=== PATIENT | male | born 1930 | race Caucasian/White ===

== ENCOUNTER 2019-01-17 10:45 | Emergency (ER) | payer MEDICARE, OTHER ==
[2019-01-17 11:09] VITALS: BP 158/61
[2019-01-17] MEDS ORDERED: traMADol 50 MG Tab PO ONE (11:15)
--- NOTE | 2019-01-17 13:04 | EDM.PDOC ---
ED HPI GENERAL MEDICAL PROBLEM - General Chief Complaint: General Stated Complaint: back pain post fall Time Seen by Provider: 01/17/19 10:48 Source of Information: Reports: Patient, Family History Limitations: Reports: Other (Patient is poor with history due to some baseline cognitive impairment) - History of Present Illness INITIAL COMMENTS - FREE TEXT/NARRATIVE: Patient brought in by his son for evaluation of low back pain complaint. Reportedly fell at home two days ago. No LOC per patient. Has history of falls /syncopal episodes which are being worked up by his primary care team. Recent adjustments to BP meds made per son. Son has concern that there could be a new compression fracture. Pain is more significant when patient lays flat. Also some discomfort at times when moving right shoulder. No other acute pain complaints or injuries reported. No focal weakness or neuro changes on ROS. No bowel/bladder changes. - Related Data Allergies Allergy/AdvReac Type Severity Reaction Status Date / Time Penicillins Allergy Skin Peels Verified 10/09/16 22:34 Home Meds: Home Meds Finasteride 5 mg PO DAILY@1200 04/09/16 [History] Sertraline HCl 50 mg PO QAM 04/09/16 [History] clonazePAM [Clonazepam] 0.5 mg PO BEDTIME 04/09/16 [History] Lisinopril 2.5 mg PO DAILY 10/09/16 [History] Nitroglycerin 0.4 mg SL Q5M PRN 10/09/16 [History] [place]-3 Fatty Acids [Maxepa] 2 tab PO DAILY 10/09/16 [History] atorvaSTATin [Lipitor] 40 mg PO BEDTIME 10/09/16 [History] Levothyroxine [Synthroid] 50 mcg PO BEDTIME #60 tablet 10/10/16 [Rx] Metoprolol Succinate [Toprol XL] 12.5 mg PO BID #60 tab.er 10/10/16 [Rx] Aspirin [Aspirin EC] 325 mg PO DAILY 01/17/19 [History] Brimonidine [Alphagan P 0.15% Ophth Soln] 1 drop OP BID 01/17/19 [History] Docusate Sodium [Colace] 100 mg PO DAILY 01/17/19 [History] Past Medical History HEENT History: Reports: Allergic Rhinitis, Cataract, Glaucoma, Hard of Hearing, Impaired Vision, Macular Degeneration Other HEENT History: Not wearing his glasses any longer with 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, macular degeneration and glaucoma, bilateral hearing aid therapy Cardiovascular History: Reports: Afib, Arrhythmia, CAD, Cardiomyopathy, Heart Failure, Heart Murmur, High Cholesterol, Hypertension, CT, PVD Other Cardiovascular History: Coronary artery disease with acute CT on 04/10/16 with stent placement as below, Mild mitral valve insufficiency and mild to moderate tricuspid valve insufficiency by echocardiogram as below, mild grade 1 diastolic dysfunction with moderate left atrial enlargement, previous history of recurrent atrial fibrillation with Coumadin therapy stopped in 2009 secondary to upper GI bleed/peptic ulcer disease, bradycardia, dyslipidemia, 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 Psychiatric History: Reports: Anxiety, Depression Endocrine/Metabolic History: Reports: Osteoporosis Hematologic History: Reports: Anemia, Blood Transfusion(s) Other Hematologic History: Transfusion secondary to upper GI bleed as above Immunologic History: Reports: None Oncologic (Cancer) History: Reports: None Dermatologic History: Reports: None - Infectious Disease History Infectious Disease History: Reports: Chicken Pox, Helicobacter Pylori, Measles, Mumps Other Infectious Disease History: A coccidioidal infection on 02/10/12 - Past Surgical History Head Surgeries/Procedures: Reports: None HEENT Surgical History: Reports: Adenoidectomy, Cataract Surgery, Laser Surgery , Oral Surgery, Tonsillectomy Cardiovascular Surgical History: Reports: Carotid Endarterectomy, Carotid Stents , Percutaneous Transluminal Angioplasty GI Surgical History: Reports: Appendectomy, Colonoscopy, EGD, Hernia, Inguinal Endocrine Surgical History: Reports: None Neurological Surgical History: Reports: Laminectomy, Lumbar Spine Oncologic Surgical History: Reports: None Dermatological Surgical History: Reports: None - Past Imaging History Past Imaging History: Reports: Angiography, Cardiac Echo, Carotid US, Sleep Study, Stress Testing Social & Family History - Family History HEENT: Reports: None Cardiac: Reports: Arrhythmia, Heart Failure, Heart Murmur, High Cholesterol, Hypertension Other Cardiac Family History: Hypertension in brother, son, and mother, son with hyperlipidemia and status post mechanical valve replacement secondary to SBE from a dental procedure, mother with fatal CHF at about age 86, brother with unknown type of arrhythmia Respiratory: Reports: None GI: Reports: None : Reports: None OBGYN: Reports: None Musculoskeletal: Reports: Arthritis, Other (See Below) Other Musculoskeletal Family History: Mother with arthritis Neurological: Reports: Parkinson's, Other (See Below) Other Neurological Family History: Half Brother with Parkinson Psychiatric: Reports: None Endocrine/Metabolic: Reports: Diabetes, type II, Other (See Below) Other Endocrine/Metabolic Family History: Mother with diabetes mellitus Hematologic: Reports: None Immunologic: Reports: None Dermatologic: Reports: None Oncologic: Reports: Pancreatic, Other (See Below) Other Oncologic Family History: Maternal great aunt with fatal pancreatic cancer in her 60s - Tobacco Use Smoking Status *Q: Never Smoker - Caffeine Use Caffeine Use: Reports: Coffee (4 cups per day), Soda (Occasional), Tea ( Occasional). Denies: Energy Drinks Other Caffeine Use: had at least 4 cups of coffe today in am - Living Situation & Occupation Living situation: Reports: , with Family Occupation: Retired ED ROS GENERAL - Review of Systems Review Of Systems: See Below Constitutional: Reports: No Symptoms HEENT: Reports: No Symptoms, Glasses. Denies: Vision Change Respiratory: Reports: No Symptoms. Denies: Pleuritic Chest Pain Cardiovascular: Reports: Other (Has history of previous falls/syncopal episodes , frequency unchanged. ). Denies: Chest Pain GI/Abdominal: Reports: No Symptoms. Denies: Abdominal Pain, Constipation, Diarrhea, Nausea, Vomiting : Reports: No Symptoms. Denies: Flank Pain, Hematuria Musculoskeletal: Reports: Shoulder Pain (right, intermittent), Back Pain (low). Denies: Arm Pain, Hand Pain, Leg Pain, Foot Pain, Joint Swelling, Muscle Stiffness Skin: Reports: Bruising (on hands, old). Denies: Rash, Wound, Lesions Neurological: Reports: Difficulty Walking (has baseline weakness and ambulation difficulties secondary to age). Denies: Headache, Numbness, Paresthesia, Tingling, Trouble Speaking, Change in Speech Psychiatric: Reports: No Symptoms Hematologic/Lymphatic: Reports: No Symptoms ED EXAM, GENERAL - Physical Exam Exam: See Below Free Text/Narrative:: Patient stayed in his wheelchair during visit. Did not want to lay flat on a bed. Exam Limited By: No Limitations General Appearance: Alert, WD/WN, No Apparent Distress Eye Exam: Bilateral Eye: EOMI, PERRL Ears: Normal External Exam Nose: No: Nasal Deformity, Nasal Swelling, Nasal Drainage Throat/Mouth: Normal Lips, Normal Voice, No Airway Compromise Head: Atraumatic, Normocephalic. No: Facial Swelling, Facial Tenderness Neck: Normal Inspection, Supple, Non-Tender, Full Range of Motion. No: Tender Lateral, Tender Midline Respiratory/Chest: No Respiratory Distress, Lungs Clear, Normal Breath Sounds, No Accessory Muscle Use, Chest Non-Tender Cardiovascular: Regular Rate, Rhythm, No Edema, No Murmur, Systolic Murmur Peripheral Pulses: 2+: Radial (L), Radial (R) GI/Abdominal: Normal Bowel Sounds, Soft, Non-Tender, No Distention (Male) Exam: Deferred Rectal (Males) Exam: Deferred Back Exam: Other (Unable to pinpoint focal tenderness, unable to reproduce patient's complaint). No: CVA Tenderness (L), CVA Tenderness (R), Muscle Spasm , Paraspinal Tenderness, Vertebral Tenderness Extremities: Non-Tender, No Pedal Edema, Normal Capillary Refill, Other (unable to localize patient's pain complaint. Patient did not want to lift up right arm due to shoulder discomfort but had no limitiation with passive assisted range of motion. No focal joint tenderness. Able to lift up each lower extremity while sitting without difficulty or pain. ). No: Joint Swelling, Arm Pain, Ayse's Sign, Leg Pain, Increased Warmth, Pallor Neurological: Alert, No Motor/Sensory Deficits, Other (equal strength bilaterally) Psychiatric: Normal Affect, Normal Mood Skin Exam: Warm, Dry, Intact, Ecchymosis (lower arms/hands). No: Increased Warmth, Wound/Incision Course - Vital Signs Last Recorded V/S: Last Vital Signs Temp 36.6 C 01/17/19 10:45 Pulse 58 L 01/17/19 10:45 Resp 16 01/17/19 10:45 BP 158/61 H 01/17/19 10:45 Pulse Ox 95 01/17/19 10:45 - Orders/Labs/Meds Orders: Active Orders 24 hr Category Date Time Status Lumbar Spine wo Cont [CT] Stat Exams 01/17/19 11:13 Ordered Shoulder Comp Rt [CR] Stat Exams 01/17/19 11:13 Ordered Meds: Medications Discontinued Medications Generic Name Dose Route Start Last Admin Trade Name Lee PRN Reason Stop Dose Admin Tramadol HCl 50 mg 01/17/19 11:15 01/17/19 11:19 Ultram PO 01/17/19 11:16 50 mg ONETIME ONE Administration - Radiology Interpretation Free Text/Narrative:: CT of low back performed to rule out compression fracture. No acute changes per Radiology. Report faxed at 12:24 Xray of right shoulder did not appear to show acute fracture. - Re-Assessments/Exams Free Text/Narrative Re-Assessment/Exam: Patient given one PO Tramadol shortly after arrival. This appeared to offer significant improvement in pain complaint. No focal findings on exam nor on imaging studies. Suspect soft tissue soreness from patient's recent fall is main problems. Precautions reviewed. To follow up as needed if further changes are noted. Given one bottle of 10 Tramadols for home use for PRN pain To continue his follow up for syncopal episodes. Departure - Departure Time of Disposition: 13:01 Disposition: Home, Self-Care 01 Condition: Good Clinical Impression: Muscle soreness Fall Qualifiers: Encounter type: initial encounter Qualified Code(s): W19.XXXA - Unspecified fall, initial encounter - Discharge Information *PRESCRIPTION DRUG MONITORING PROGRAM REVIEWED*: Not Applicable *COPY OF PRESCRIPTION DRUG MONITORING REPORT IN PATIENT ABIEL: Not Applicable Instructions: Tramadol tablets Referrals: Jessy Gonzalez PA-C [Primary Care Provider] - Forms: ED Department Discharge Additional Instructions: OK to take one Tramadol tablet every 6-8 hours as needed to help with pain. Follow up with your primary provider for a recheck this week if discomfort persists and a refill is needed. Watch for changes and follow up as needed if you have concerns. - My Orders Last 24 Hours: My Active Orders 01/17/19 11:13 Lumbar Spine wo Cont [CT] Stat Shoulder Comp Rt [CR] Stat - Assessment/Plan Last 24 Hours: My Active Orders 01/17/19 11:13 Lumbar Spine wo Cont [CT] Stat Shoulder Comp Rt [CR] Stat
== END 2019-01-17 13:10 | disposition home or self-care (01) ==
LOC: LL.ED 10:45
DX: S39.002A Unspecified injury of muscle, fascia and tendon of lower back, initial encounter (principal); I48.91 Unspecified atrial fibrillation; I10 Essential (primary) hypertension; I15.0 Renovascular hypertension; G30.9 Alzheimer's disease, unspecified; F02.80 Dementia in other diseases classified elsewhere, unspecified severity, without behavioral disturbance, psychotic disturbance, mood disturbance, and anxiety; F41.9 Anxiety disorder, unspecified; F32.9 Major depressive disorder, single episode, unspecified; J44.9 Chronic obstructive pulmonary disease, unspecified; E78.00 Pure hypercholesterolemia, unspecified; Z79.82 Long term (current) use of aspirin; Z79.899 Other long term (current) drug therapy; Z88.0 Allergy status to penicillin; W19.XXXA Unspecified fall, initial encounter; Y92.009 Unspecified place in unspecified non-institutional (private) residence as the place of occurrence of the external cause
CPT/HCPCS: 72131; 73030-RT; 99284-25; A9270-GY